=== PATIENT | female | born 1965 | race Caucasian/White ===

== ENCOUNTER 2018-02-25 23:41 | Inpatient (IN) | payer MEDICAID ==
[2018-02-26 00:41] LABS: ADD MAN DIFF? NO
[2018-02-26 00:44] LABS: WHITE BLOOD COUNT 7.5 10^3/ul (4.8-10.8)
[2018-02-26 00:44] LABS: BASOPHIL # 0.1 10^3/ul (0.0-0.1); BASOPHILS % 0.7 % (0.0-2.0); EOSINOPHILS # 0.5 10^3/ul (0.0-0.5); EOSINOPHILS % 6.1 % (0.0-7.0); HEMOGLOBIN 9.5 g/dl (12.0-16.0); LYMPHOCYTES # 2.3 10^3/ul (0.8-2.9); MEAN CORPUSCULAR HEMOGLOBIN 19.8 pg (29.0-33.0); MEAN CORPUSCULAR HGB CONC 29.7 g/dl (32.0-37.0); MEAN CORPUSCULAR VOLUME 66.7 fl (82.0-101.0); MEAN PLATELET VOLUME 10.6 fl (7.4-10.4); MONOCYTE # 0.5 10^3/ul (0.3-0.9); MONOCYTES % 6.5 % (0.0-11.0); NEUTROPHIL # 4.2 10^3/ul (1.6-7.5); NEUTROPHILS % 55.3 % (39.0-77.0); PLATELET COUNT 391 10^3/UL (140-415); RED CELL DISTRIBUTION WIDTH 16.1 % (11.5-14.5)
[2018-02-26 01:16] LABS: ALANINE AMINOTRANSFERASE 114 IU/L (13-69); ALBUMIN 4.8 g/dl (3.3-4.9); ALBUMIN/GLOBULIN RATIO 1.37; ALKALINE PHOSPHATASE 199 IU/L (42-121); ANION GAP 17 (8-16); ASPARTATE AMINO TRANSFERASE 89 IU/L (15-46); BILIRUBIN,INDIRECT 0.1 mg/dl (0-1.1); BILIRUBIN,TOTAL 0.1 mg/dl (0.2-1.3); BLOOD UREA NITROGEN 10 mg/dl (7-20); CALCIUM 9.5 mg/dl (8.4-10.2); CARBON DIOXIDE 25 mmol/L (21-31); CHLORIDE 105 mmol/L (97-110); CREATININE 1.13 mg/dl (0.44-1.00); GLUCOSE 102 mg/dl (70-220); POTASSIUM 3.9 mmol/L (3.5-5.1); SODIUM 143 mmol/L (135-144); TOTAL PROTEIN 8.3 g/dl (6.1-8.1)
[2018-02-26 01:34] LABS: B-TYPE NATRIURETIC PEPTIDE < 11 PG/ML (0-125); TROPONIN-I < 0.012 ng/ml (0.00-0.12)
[2018-02-26] MEDS: LIDOCAINE/MYLANTA 40 ML BTL PO (01:42)
[2018-02-26] MEDS: CEFTRIAXONE 1 GM/50 ML (PMX) 50 ML IVPB (01:42)
[2018-02-26] MEDS: AZITHROMYCIN 500MG/NS (PMX) 250 ML IVPB (02:19)
[2018-02-26] MEDS: GLUCAGON 1 MG INJ IM (02:31)
[2018-02-26] MEDS ORDERED: METOCLOPRAMIDE 10 MG INJ (07:00)
[2018-02-26] MEDS ORDERED: ALBUTEROL/IPRATROPIUM (NEB) 3 ML AMP HHN (07:30)
[2018-02-26] MEDS ORDERED: morphine 2 MG INJ IV (07:30)
[2018-02-26] MEDS ORDERED: NACL 0.9% 3 ML SYG IV (07:30)
[2018-02-26 08:09] LABS: CREATINE KINASE 91 IU/L (23-200)
[2018-02-26 08:20] LABS: CK INDEX 0.5
[2018-02-26 08:25] LABS: TROPONIN-I < 0.012 ng/ml (0.00-0.12)
[2018-02-26] MEDS: DEXTROSE 5%-0.45% NACL 1,000 ML IV ×2 (08:30→18:06)
[2018-02-26] MEDS: ONDANSETRON 4 MG INJ IV (08:32)
[2018-02-26] MEDS: FAMOTIDINE 20 MG INJ IV (08:32)
[2018-02-26 12:45] LABS: CREATINE KINASE 78 IU/L (23-200)
[2018-02-26 12:58] LABS: CK INDEX 0.5; CK-MB 0.37 ng/ml (0.0-2.4)
[2018-02-26 12:59] LABS: TROPONIN-I < 0.012 ng/ml (0.00-0.12)
[2018-02-26 15:31] LABS: HEMATOCRIT 30.4 % (37.0-47.0); HEMOGLOBIN 9.3 g/dl (12.0-16.0)
[2018-02-26 16:21] LABS: HEPATITIS B SURFACE ANTIGEN NEGATIVE (NEGATIVE)
[2018-02-26 16:39] LABS: HEPATITIS B CORE ANTIBODY NEGATIVE (NEGATIVE); HEPATITIS C VIRAL ANTIBODY NEGATIVE (NEGATIVE)
[2018-02-26] MEDS: MIDAZOLAM 1 MG/ML 2 ML INJ (16:59)
[2018-02-26] MEDS: PROPOFOL 20 ML (16:59)
[2018-02-26] MEDS: FENTAnyl 50 MCG/ML VIAL (16:59)
[2018-02-26 17:11] LABS: HEPATITIS B SURFACE ANTIBODY NEGATIVE (NEGATIVE)
[2018-02-26] MEDS: PANTOPRAZOLE 40 MG INJ IV (18:05)
[2018-02-26] MEDS: PIPER-TAZO 3.375 GM IV (PMX) 100 ML IVPB (18:05)
[2018-02-26 20:17] LABS: HEMATOCRIT 28.6 % (37.0-47.0); HEMOGLOBIN 8.8 g/dl (12.0-16.0)
[2018-02-27] MEDS: PIPER-TAZO 3.375 GM IV (PMX) 100 ML IVPB ×3 (01:50→17:15)
[2018-02-27 02:31] LABS: HEMATOCRIT 28.8 % (37.0-47.0); HEMOGLOBIN 8.7 g/dl (12.0-16.0)
[2018-02-27] MEDS: DEXTROSE 5%-0.45% NACL 1,000 ML IV ×2 (03:18→13:14)
[2018-02-27] MEDS: PANTOPRAZOLE 40 MG INJ IV ×2 (05:43→17:15)
[2018-02-27 05:46] LABS: ADD MAN DIFF? NO
[2018-02-27 05:53] LABS: BASOPHILS % 0.5 % (0.0-2.0); EOSINOPHILS # 0.5 10^3/ul (0.0-0.5); EOSINOPHILS % 6.8 % (0.0-7.0); HEMATOCRIT 28.7 % (37.0-47.0); HEMOGLOBIN 8.6 g/dl (12.0-16.0); LYMPHOCYTES # 2.3 10^3/ul (0.8-2.9); LYMPHOCYTES % 34.1 % (15.0-51.0); MEAN CORPUSCULAR VOLUME 66.7 fl (82.0-101.0); MEAN PLATELET VOLUME 10.3 fl (7.4-10.4); MONOCYTE # 0.6 10^3/ul (0.3-0.9); MONOCYTES % 8.6 % (0.0-11.0); NEUTROPHIL # 3.3 10^3/ul (1.6-7.5); NEUTROPHILS % 49.8 % (39.0-77.0); PLATELET COUNT 404 10^3/UL (140-415); RED CELL DISTRIBUTION WIDTH 15.9 % (11.5-14.5)
[2018-02-27 05:53] LABS: WHITE BLOOD COUNT 6.6 10^3/ul (4.8-10.8)
[2018-02-27 06:16] LABS: IRON 34 ug/dl (35-150)
[2018-02-27 06:23] LABS: ALANINE AMINOTRANSFERASE 92 IU/L (13-69); ALBUMIN 3.8 g/dl (3.3-4.9); ALBUMIN/GLOBULIN RATIO 1.26; ALKALINE PHOSPHATASE 163 IU/L (42-121); ANION GAP 14 (8-16); ASPARTATE AMINO TRANSFERASE 61 IU/L (15-46); BILIRUBIN,INDIRECT 0.5 mg/dl (0-1.1); BILIRUBIN,TOTAL 0.5 mg/dl (0.2-1.3); BLOOD UREA NITROGEN 8 mg/dl (7-20); CALCIUM 8.4 mg/dl (8.4-10.2); CARBON DIOXIDE 24 mmol/L (21-31); CHLORIDE 108 mmol/L (97-110); CHOL/HDL RATIO 3.7 RATIO; CHOLESTEROL 147 mg/dl (100-200); CREATININE 0.72 mg/dl (0.44-1.00); GLUCOSE 105 mg/dl (70-220); HDL CHOLESTEROL 39 mg/dl (37-92); LDL CHOLESTEROL,CALCULATED 84 mg/dl; PHOSPHORUS 4.1 mg/dl (2.5-4.9); POTASSIUM 3.8 mmol/L (3.5-5.1); SODIUM 142 mmol/L (135-144); TOTAL PROTEIN 6.8 g/dl (6.1-8.1); TRIGLYCERIDES 122 mg/dl (0-149)
[2018-02-27 06:26] LABS: % IRON SATURATION 7 % SAT (22-52); TOTAL IRON BINDING CAPACITY 468 ug/dl (241-421)
[2018-02-27 06:44] LABS: FERRITIN 7.2 ng/ml (11.1-264.0)
[2018-02-27 09:57] LABS: HEMOGLOBIN 8.6 g/dl (12.0-16.0)
[2018-02-27 20:22] LABS: HEMATOCRIT 29.2 % (37.0-47.0); HEMOGLOBIN 8.8 g/dl (12.0-16.0)
[2018-02-28] MEDS: PIPER-TAZO 3.375 GM IV (PMX) 100 ML IVPB ×3 (02:54→17:38)
[2018-02-28] MEDS: PANTOPRAZOLE 40 MG INJ IV ×2 (06:08→17:38)
[2018-02-28] MEDS: IOHEXOL 300MG/ML 150 ML BTL (09:54)
[2018-02-28] MEDS: SOD CHLORIDE 0.9% 100 ML (09:54)
[2018-02-28] MEDS: FERROUS SULFATE (EC) 325 MG TAB PO ×2 (10:20→20:28)
[2018-02-28 12:44] LABS: OCCULT BLOOD STOOL NEGATIVE (NEGATIVE)
[2018-03-01] MEDS: PIPER-TAZO 3.375 GM IV (PMX) 100 ML IVPB ×3 (02:53→17:34)
[2018-03-01] MEDS: PANTOPRAZOLE 40 MG INJ IV ×2 (05:59→17:34)
[2018-03-01 08:25] LABS: ADD MAN DIFF? NO
[2018-03-01 08:27] LABS: BASOPHILS % 0.5 % (0.0-2.0); EOSINOPHILS # 0.4 10^3/ul (0.0-0.5); EOSINOPHILS % 5.9 % (0.0-7.0); HEMATOCRIT 30.1 % (37.0-47.0); LYMPHOCYTES # 2.5 10^3/ul (0.8-2.9); LYMPHOCYTES % 33.7 % (15.0-51.0); MEAN CORPUSCULAR HEMOGLOBIN 20.1 pg (29.0-33.0); MEAN CORPUSCULAR HGB CONC 29.9 g/dl (32.0-37.0); MEAN CORPUSCULAR VOLUME 67.3 fl (82.0-101.0); MEAN PLATELET VOLUME 10.1 fl (7.4-10.4); MONOCYTE # 0.5 10^3/ul (0.3-0.9); MONOCYTES % 7.2 % (0.0-11.0); NEUTROPHIL # 3.8 10^3/ul (1.6-7.5); NEUTROPHILS % 52.4 % (39.0-77.0); PLATELET COUNT 409 10^3/UL (140-415); RED BLOOD COUNT 4.47 10^6/ul (4.20-5.40); RED CELL DISTRIBUTION WIDTH 16.3 % (11.5-14.5)
[2018-03-01 08:27] LABS: WHITE BLOOD COUNT 7.3 10^3/ul (4.8-10.8)
[2018-03-01 09:04] LABS: ANION GAP 17 (8-16); BLOOD UREA NITROGEN 9 mg/dl (7-20); CALCIUM 8.9 mg/dl (8.4-10.2); CARBON DIOXIDE 24 mmol/L (21-31); CHLORIDE 108 mmol/L (97-110); GLUCOSE 81 mg/dl (70-220); POTASSIUM 4.2 mmol/L (3.5-5.1); SODIUM 145 mmol/L (135-144)
[2018-03-01] MEDS: BISACODYL (EC) 5 MG TAB PO (09:11)
[2018-03-01] MEDS: FERROUS SULFATE (EC) 325 MG TAB PO ×2 (09:11→20:21)
[2018-03-01] MEDS: POLYETHYLENE GLYCOL 3350 119 GM POWDER PO (17:34)
[2018-03-01] MEDS: MAGNESIUM CITRATE 300 ML BTL PO (19:56)
[2018-03-02] MEDS: PIPER-TAZO 3.375 GM IV (PMX) 100 ML IVPB ×3 (02:48→18:49)
[2018-03-02] MEDS: POLYETHYLENE GLYCOL 3350 119 GM POWDER PO (05:38)
[2018-03-02] MEDS: PANTOPRAZOLE 40 MG INJ IV ×2 (05:42→18:49)
[2018-03-02 07:01] LABS: ALANINE AMINOTRANSFERASE 90 IU/L (13-69); ALBUMIN 4.3 g/dl (3.3-4.9); ALKALINE PHOSPHATASE 195 IU/L (42-121); ASPARTATE AMINO TRANSFERASE 61 IU/L (15-46); BILIRUBIN,INDIRECT 0.7 mg/dl (0-1.1); BILIRUBIN,TOTAL 0.7 mg/dl (0.2-1.3); TOTAL PROTEIN 7.7 g/dl (6.1-8.1)
[2018-03-02] MEDS: FERROUS SULFATE (EC) 325 MG TAB PO ×2 (08:16→21:23)
[2018-03-02] MEDS: BISACODYL (EC) 5 MG TAB PO (08:16)
[2018-03-02] MEDS: BARIUM SULFATE 135 ML (E-Z HD) PO (09:20)
[2018-03-02] MEDS ORDERED: ONDANSETRON 4 MG INJ IV (16:00)
[2018-03-02] MEDS: PROPOFOL 40 ML (21:00)
[2018-03-03] MEDS: PIPER-TAZO 3.375 GM IV (PMX) 100 ML IVPB ×2 (02:00→09:43)
[2018-03-03] MEDS: PANTOPRAZOLE 40 MG INJ IV ×2 (05:21→18:46)
[2018-03-03] MEDS: FERROUS SULFATE (EC) 325 MG TAB PO ×2 (09:43→21:19)
[2018-03-03 17:08] LABS: GAMMA GLUTAMYL TRANSPEPTIDASE 340 IU/L (0-50)
[2018-03-04] MEDS: PANTOPRAZOLE 40 MG INJ IV (05:04)
[2018-03-04] MEDS: BARIUM SULFATE 135 ML (E-Z HD) PO (08:25)
[2018-03-04] MEDS: FERROUS SULFATE (EC) 325 MG TAB PO (09:00)
[2018-03-04] MEDS ORDERED: SOD FERRIC GLUC COMPLX 125 MG in SOD CHLORIDE 0.9% 100 ML IVPB (17:00)
[2018-03-04 17:26] LABS: MITOCHONDRIAL TB NEGATIVE (NEGATIVE); SMOOTH MUSCLE AB SCREEN NEGATIVE (NEGATIVE)
[2018-03-04 18:12] LABS: ANA SCREEN POSITIVE (NEGATIVE)
[2018-03-04 19:42] LABS: ANA PATTERN CENTROMERE
== END 2018-03-04 15:20 | disposition home or self-care (01) | DRG 393 ==
LOC: TEL 02-28 02:28 → E/R 23:41 → TEL 03-02 17:48 → MS3 02-26 03:58
PROC: 0DJ08ZZ Inspection of Upper Intestinal Tract, Via Natural or Artificial Opening Endoscopic (ICD-10-PCS; principal; 2018-02-26 16:44)
PROC: 0DJD8ZZ Inspection of Lower Intestinal Tract, Via Natural or Artificial Opening Endoscopic (ICD-10-PCS; 2018-02-26 16:44)
DX: T18.128A Food in esophagus causing other injury, initial encounter (principal); J69.0 Pneumonitis due to inhalation of food and vomit; N17.9 Acute kidney failure, unspecified; K92.1 Melena; D50.9 Iron deficiency anemia, unspecified; R13.10 Dysphagia, unspecified; K76.0 Fatty (change of) liver, not elsewhere classified; K21.9 Gastro-esophageal reflux disease without esophagitis; K29.70 Gastritis, unspecified, without bleeding; K20.8 Other esophagitis; K64.8 Other hemorrhoids; R07.9 Chest pain, unspecified; R91.1 Solitary pulmonary nodule; R73.03 Prediabetes; E66.9 Obesity, unspecified; Z68.32 Body mass index [BMI] 32.0-32.9, adult; X58.XXXA Exposure to other specified factors, initial encounter
CPT/HCPCS: 36415; 70490; 71045; 71260; 74177; 74230; 76705; 80048; 80053; 80061; 80076; 82270; 82550; 82553; 82728; 82962; 82977; 83036; 83540; 83735; 83880; 84100; 84484; 84703; 85014; 85018; 85025; 86038; 86255; 86704; 86706; 86709; 86803; 87040; 87340; 92526; 92610; 92611; 93005; 93306; 96372; 96374; 96375; 99285-25